=== PATIENT | male | born 1980 | race Two or more races ===

== ENCOUNTER 2018-10-14 11:03 | Emergency (ER) | payer OTHER ==
[~2018-10-14] VITALS: Ht 177.8 cm; Wt 81.6 kg
[2018-10-14 11:33] VITALS: BP 127/87
== END 2018-10-14 11:47 | disposition home or self-care (01) ==
LOC: ER 11:09
DX: S01.81XD Laceration without foreign body of other part of head, subsequent encounter (principal); F17.210 Nicotine dependence, cigarettes, uncomplicated; X58.XXXD Exposure to other specified factors, subsequent encounter